=== PATIENT | male | born 1975 | race Hispanic/Latino ===

== ENCOUNTER 2019-06-02 15:26 | Emergency (ER) | payer OTHER ==
[2019-06-02 16:22] LABS: Absolute Lymphocytes (CBC) 1.8 K/uL (0.7-4.9); Basophils % 0.6 % (0-1.3); Lymphocytes % 23.7 % (15.3-44.8); MPV 9.2 fL (7.6-11.3); RBC Red Blood Cell Count 5.71 M/uL (4.33-5.43)
[2019-06-02 16:36] LABS: BUN Blood Urea Nitrogen 18 mg/dL (7-18); Bicarbonate 28 mmol/L (21-32); Glucose Level 270 mg/dL (74-106); NT PRO-BNP 10 pg/mL (<125); Potassium 3.9 mmol/L (3.5-5.1); Sodium Level 135 mmol/L (136-145); Troponin (Emerg Dept Use Only) < 0.02 ng/mL (0.0-0.045)
--- NOTE | 2019-06-02 17:02 | ER ---
Nurse's Notes [facility] Name: Jenaro Mittal Age: 43 yrs Sex: Male : 1975 Arrival Date: 06/02/2019 Time: 15:29 Bed 20 Private MD: Diagnosis: Abnormal electrocardiogram [ECG] [EKG];Hypertension Presentation: 06/01 15:35 Chief complaint: Patient states: seen at [facility] for diabetes follow-up and had aa5 abnormal EKG. Pt reports mild chest pain on and off x 1 week ago. Currently denies chest pain. Denies SOB, denies cough, denies fever. Coronavirus screen: Proceed with normal triage. Patient denies a cough. Patient denies shortness of breath or difficulty breathing. Patient denies measured and/or subjective temperature greater than 100.4F prior to today's visit. Patient denies travel on a cruise ship or to a country the [facility] currently lists as an affected area. Patient denies contact with known and/or suspected case of COVID-19. Ebola Screen: Patient negative for fever greater than or equal to 101.5 degrees Fahrenheit, and additional compatible Ebola Virus Disease symptoms. Risk Assessment: Do you want to hurt yourself or someone else? Patient reports no desire to harm self or others. Onset of symptoms was May 2019. 15:35 Method Of Arrival: Ambulatory aa5 15:35 Acuity: AGNIESZKA 3 aa5 15:39 Initial Sepsis Screen: Does the patient meet any 2 criteria? No. Patient's initial ca1 sepsis screen is negative. Does the patient have a suspected source of infection? No. Patient's initial sepsis screen is negative. Historical: - Allergies: 15:37 No Known Allergies; aa5 - PMHx: 15:37 Diabetes - NIDDM; Hypertension; aa5 - PSHx: 15:37 None; aa5 - Immunization history:: Flu vaccine is not up to date. - Social history:: Smoking status: Patient denies any tobacco usage or history of. - Family history:: not pertinent. - Hospitalizations: : No recent hospitalization is reported. Screenin:50 Abuse screen: Denies threats or abuse. Nutritional screening: No deficits noted. rb1 Tuberculosis screening: No symptoms or risk factors identified. Fall Risk None identified. Assessment: 15:50 General: Appears in no apparent distress. comfortable, Behavior is calm, cooperative. rb1 General: Pt. went to his doctor for diabetes checkup today and when they did an EKG it was abnormal. 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 Pain: Denies pain. Neuro: Level of Consciousness is awake, alert, obeys commands, Oriented to person, place, time, situation. Cardiovascular: Reports abnormal EKG at the [facility] during his appointment Denies chest pain, Capillary refill < 3 seconds is brisk in bilateral fingers. 15:50 Respiratory: Airway is patent Respiratory effort is even, unlabored, Respiratory rb1 pattern is regular, symmetrical. 15:50 GI: No signs and/or symptoms were reported involving the gastrointestinal system. : rb1 No signs and/or symptoms were reported regarding the genitourinary system. Derm: Skin is pink, warm \T\ dry. Musculoskeletal: Range of motion: intact in all extremities. 17:17 Reassessment: Patient appears in no apparent distress at this time. Patient and/or tw2 family updated on plan of care and expected duration. Pain level reassessed. Patient is alert, oriented x 3, equal unlabored respirations, skin warm/dry/pink. Vital Signs: 15:35 Weight 113.4 kg (R); Height 5 ft. 8 in. (172.72 cm) (R); Pain 0/10; aa5 15:39 BP 154 / 93; Pulse 76; Resp 20; Temp 98.2(O); Pulse Ox 99% on R/A; ca1 16:37 BP 148 / 93; Pulse 80; Resp 19; Pulse Ox 98% on R/A; Pain 0/10; rb1 15:35 Body Mass Index 38.01 (113.40 kg, 172.72 cm) aa5 ED Course: 15:29 Patient arrived in ED. as 15:29 Arm band placed on. aa5 15:33 Bernardo Mccann MD is Attending Physician. rn 15:36 Triage completed. aa5 15:39 EKG done, by ED staff, reviewed by Bernardo Mccann MD. ca1 15:50 Patient has correct armband on for positive identification. Bed in low position. Call rb1 light in reach. Side rails up X 1. aircraft shipping checker on. Pulse ox on. NIBP on. 16:00 Anny Lovelace, RN is Primary Nurse. rb1 16:00 X-ray(s) taken. jp3 16:08 Inserted saline lock: 20 gauge in right antecubital area, using aseptic technique. jp3 Blood collected. 16:08 Initial lab(s) drawn, by me, sent to lab. jp3 16:15 Basic Metabolic Panel Sent. jp3 16:15 XRAY Chest (1 view) Sent. jp3 16:20 XRAY Chest (1 view) In Process Unspecified. EDMS 17:16 No provider procedures requiring assistance completed. IV discontinued, intact, tw2 bleeding controlled, No redness/swelling at site. Pressure dressing applied. Administered Medications: No medications were administered Outcome: 17:01 Discharge ordered by . rn 17:16 Discharged to home ambulatory. tw2 17:16 Condition: stable 17:16 Discharge instructions given to patient, Instructed on discharge instructions, follow up and referral plans. Demonstrated understanding of instructions, follow-up care. 17:17 Patient left the ED. tw2 Signatures: Dispatcher [employer] EDMS Delaney Chun Roman, MD MD rn Calderon, Audri, RN RN aa5 Anny Lovelace, RN RN rb1 Christa Medel RN RN tw2 [place] jp3 Brooklynn Ling, WALTER RN ca1 Corrections: (The following items were deleted from the chart) 16:14 15:50 Respiratory: Airway is patent Respiratory effort is even, unlabored, Respiratory rb1 pattern is regular, symmetrical, rb1
--- NOTE | 2019-06-02 17:02 | EDPHYS ---
Physician Documentation [facility] Name: Jenaro Mittal Age: 43 yrs Sex: Male : 1975 Arrival Date: 06/02/2019 Time: 15:29 Bed 20 Private MD: ED Physician Bernardo Mccann HPI: 06/01 15:42 This 43 yrs old Male presents to ER via Ambulatory with complaints of Abnormal rn EKG. 15:42 Reports sent by pcp after told abnormal ECG. Reports was there to get diabetes rn addressed, denies chest pain or sob. 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 No chest pain/sob/abd pain/nausea/vomiting/diaphoresis. Reports would not have come if hadn't been told to come. Already made appt to f/u with cardiology, has information.. The patient has not experienced similar symptoms in the past. The patient has been recently seen by a physician:. Historical: - Allergies: 15:37 No Known Allergies; aa5 - PMHx: 15:37 Diabetes - NIDDM; Hypertension; aa5 - PSHx: 15:37 None; aa5 - Immunization history:: Flu vaccine is not up to date. - Social history:: Smoking status: Patient denies any tobacco usage or history of. - Family history:: not pertinent. - Hospitalizations: : No recent hospitalization is reported. ROS: 15:42 Constitutional: Negative for fever, chills, and weight loss, Eyes: Negative for injury, rn pain, redness, and discharge, Neck: Negative for injury, pain, and swelling, Cardiovascular: Negative for chest pain, palpitations, and edema, Respiratory: Negative for shortness of breath, cough, wheezing, and pleuritic chest pain, Abdomen/GI: Negative for abdominal pain, nausea, vomiting, diarrhea, and constipation, MS/Extremity: Negative for injury and deformity, Skin: Negative for injury, rash, and discoloration, Neuro: Negative for headache, weakness, numbness, tingling, and seizure. Exam: 15:42 Constitutional: This is a well developed, well nourished patient who is awake, alert, rn and in no acute distress. Ambulatory to room without difficulty or assistance. Head/Face: Normocephalic, atraumatic. Eyes: Pupils equal round and reactive to light, extra-ocular motions intact. Lids and lashes normal. Conjunctiva and sclera are non-icteric and not injected. Cornea within normal limits. Periorbital areas with no swelling, redness, or edema. Cardiovascular: Regular rate and rhythm. No pulse deficits. Respiratory: Clear bilateral breath sounds. No increased work of breathing, no retractions or nasal flaring. Abdomen/GI: Soft, non-tender MS/ Extremity: Pulses equal, no cyanosis. Neuro: Awake and alert, GCS 15, oriented to person, place, time, and situation. Cranial nerves II-XII grossly intact. Motor strength 5/5 in all extremities. Sensory grossly intact. Cerebellar exam normal. Normal gait. 16:49 ECG was reviewed by the Attending Physician. rn Vital Signs: 15:35 Weight 113.4 kg (R); Height 5 ft. 8 in. (172.72 cm) (R); Pain 0/10; aa5 15:39 BP 154 / 93; Pulse 76; Resp 20; Temp 98.2(O); Pulse Ox 99% on R/A; ca1 16:37 BP 148 / 93; Pulse 80; Resp 19; Pulse Ox 98% on R/A; Pain 0/10; rb1 15:35 Body Mass Index 38.01 (113.40 kg, 172.72 cm) aa5 MDM: 15:33 Patient medically screened. rn 16:56 Differential Diagnosis Abnormal ECG, nonspecific twave inversion, HTN changes. Data rn reviewed: vital signs, nurses notes, lab test result(s), radiologic studies, plain films, and as a result, I will discharge patient. Test interpretation: by ED physician or midlevel provider: ECG, plain radiologic studies, CXR neg for acute infiltrate or pneumothorax. Counseling: I had a detailed discussion with the patient and/or guardian regarding: the historical points, exam findings, and any diagnostic results supporting the discharge/admit diagnosis, lab results, radiology results, the need for outpatient follow up, to return to the emergency department if symptoms worsen or persist or if there are any questions or concerns that arise at home. Response to treatment:. Special discussion: I discussed with the patient/guardian in detail that at this point there is no indication for admission to the hospital. It is understood, however, that if the symptoms persist or worsen the patient needs to return immediately for re-evaluation. ED course: Pt with nonspecific twave inversions, mild HTN, no chest pain/sob, patient requests to go home and states has f/u appt with cardiology, return precautions given and understood. . 06/01 15:42 Order name: Basic Metabolic Panel rn 06/01 15:42 Order name: CBC with Diff; Complete Time: 16:48 rn 06/01 15:42 Order name: NT PRO-BNP; Complete Time: 16:48 rn 06/01 15:42 Order name: Troponin (emerg Dept Use Only); Complete Time: 16:48 rn 06/01 15:42 Order name: XRAY Chest (1 view) rn 06/01 15:42 Order name: Basic Metabolic Panel; Complete Time: 16:48 EDMS 06/01 15:42 Order name: EKG; Complete Time: 15:43 rn 06/01 15:42 Order name: Cardiac monitoring; Complete Time: 16:14 rn 06/01 15:42 Order name: EKG - Nurse/Tech; Complete Time: 16:14 rn 06/01 15:42 Order name: IV Saline Lock; Complete Time: 16:14 rn 06/01 15:42 Order name: Labs collected and sent; Complete Time: 16:14 rn 06/01 15:42 Order name: O2 Per Protocol; Complete Time: 16:14 rn 06/01 15:42 Order name: O2 Sat Monitoring; Complete Time: 16:14 rn EC:49 Rate is 79 beats/min. Rhythm is regular. QRS [place] is Normal. NH interval is normal. QRS rn interval is normal. T waves are Inverted in leads I, aVL, V6. No ST changes noted. Clinical impression: NSR w/ Non-specific ST/T Changes. Interpreted by me. Reviewed by me. Administered Medications: No medications were administered Disposition: 06/02/19 17:01 Discharged to Home. Impression: Abnormal electrocardiogram [ECG] [EKG], Hypertension. - Condition is Stable. - Discharge Instructions: Electrocardiography, Hypertension. - Medication Reconciliation Form, Thank You Letter, Antibiotic Education, Prescription Opioid Use form. - Follow up: Private Physician; When: As needed; Reason: Recheck today's complaints, Re-evaluation by your physician. - Problem is new. - Symptoms are unchanged. Signatures: Dispatcher [employer] EDMS Mccann, Bernardo, Renetta Rosado MD, rn, RN RN aa5 Chirsta Medel RN RN tw2 Corrections: (The following items were deleted from the chart) 17:17 17:01 06/02/2019 17:01 Discharged to Home. Impression: Abnormal electrocardiogram [ECG] tw2 [EKG]; Hypertension. Condition is Stable. Forms are Medication Reconciliation Form, Thank You Letter, Antibiotic Education, Prescription Opioid Use. Follow up: Private Physician; When: As needed; Reason: Recheck today's complaints, Re-evaluation by your physician. Problem is new. Symptoms are unchanged. rn
[2019-06-02 17:25] VITALS: TEMP 98.2
[2019-06-02 17:27] VITALS: BP 148/93; O2SAT 98
--- NOTE | 2019-06-02 18:02 | RAD REPORT ---
EXAM DESCRIPTION: RAD - Chest Single View - 06/02/2019 4:20 pm CLINICAL HISTORY: abnormal ECG Chest pain. COMPARISON: No comparisons FINDINGS: Portable technique limits examination quality. The lungs are grossly clear. The heart is normal in size. No displaced fractures. IMPRESSION: No acute intrathoracic process suspected.
--- NOTE | 2019-06-03 07:39 | EKG ---
Test Date: 2019-06-02 Test Time: 15:34:07 Cylinder Handler: SHAUN MEASUREMENT RESULTS: Intervals: Rate: 79 NE: 156 QRSD: 100 QT: 406 QTc: 465 [place]: P: 16 NE: 156 QRS: 81 T: 88 INTERPRETIVE STATEMENTS: Normal sinus rhythm Nonspecific T wave abnormality Prolonged QT Abnormal ECG No previous ECG available for comparison Electronically Signed On 06-03-19 07:38:50 CDT by Onofre Turk
== END 2019-06-02 17:17 | disposition home or self-care (01) ==
LOC: ER 15:26
DX: I10 Essential (primary) hypertension (principal); E11.9 Type 2 diabetes mellitus without complications
CPT/HCPCS: 36415; 71045; 80048; 83880; 84484; 85025; 93005; 99284